=== PATIENT | female | born 1950 | race Caucasian/White ===

== ENCOUNTER 2023-05-19 10:09 | Outpatient (CLI) | payer MEDICARE | END 2023-05-19 10:10 | disposition home or self-care (01) | LOC: BICCT 10:09 | PROVIDERS: ATTEND Otolaryngology Plastic Surgery within the Head & Neck | DX: Z08 Encounter for follow-up examination after completed treatment for malignant neoplasm (principal); Z85.850 Personal history of malignant neoplasm of thyroid; Z90.89 Acquired absence of other organs; Z98.890 Other specified postprocedural states | CPT/HCPCS: 70491 ==

== ENCOUNTER 2023-07-21 10:29 | Outpatient (CLI) | payer MEDICARE | END 2023-07-21 10:30 | disposition home or self-care (01) | LOC: ULT 10:29 | PROVIDERS: ATTEND Urology | DX: N28.1 Cyst of kidney, acquired (principal) | CPT/HCPCS: 76770 ==